=== PATIENT | male | born 1970 | race Hispanic/Latino ===

== ENCOUNTER 2018-09-05 04:34 | Emergency (ER) | payer BC ==
[~2018-09-05] VITALS: Ht 185.4 cm; Wt 136.1 kg
--- OUTSIDE RECORDS SUMMARY | 2018-09-05 04:37 | XMS REPORT | Clinical Summary ---
Author Author [facility] Organization [facility] Address Unknown Phone Unavailable Care Team Providers [facility] Name Role Phone Frank Godoy MD PCP Allergies Comments Active Allergy Reactions Severity Noted Date Erectile issues Hydrochlorothiazide 03/31/2018 Medications End Date Status Medication Sig Dispensed Refills Start Date Active cholecalciferol, vitamin Take 1,000 0 D3, (VITAMIN D3) 1,000 Units by unit capsule mouth daily. 02/03/2019 Active metFORMIN XR Take 1 tablet 90 tablet 3 (GLUCOPHAGE-XR) 500 mg 24 (500 mg 8 hr tablet total) by mouth daily with breakfast. 02/03/2019 Active losartan (COZAAR) 100 MG Take 1 tablet 90 tablet 3 tablet (100 mg 8 total) by mouth daily. 04/01/2019 Active rosuvastatin (CRESTOR) 40 Take 1 tablet 90 tablet 3 MG tablet (40 mg total) 8 by mouth daily. 03/31/2018 Discontinued ciclopirox (PENLAC) 8 % Apply over 6.6 mL 2 solution nail and 7 surrounding skin. Apply daily over previous coat. After seven (7) days, may remove with alcohol and continue cycle. 02/03/2018 Discontinued rosuvastatin (CRESTOR) 20 Take 1 tablet 90 tablet 3 MG tabletIndications: (20 mg total) 7 Mixed hyperlipidemia by mouth daily. 10/01/2017 Discontinued hydroCHLOROthiazide Take 1 tablet 30 tablet 5 (HYDRODIURIL) 25 MG (25 mg total) 7 tablet by mouth daily. 09/17/2017 Discontinued meloxicam (MOBIC) 7.5 mg TAKE 1 TABLET 30 tablet 0 tablet (7.5 MG 7 TOTAL) BY MOUTH DAILY. 02/03/2018 Discontinued losartan (COZAAR) 50 MG Take 1 tablet 30 tablet 11 tablet (50 mg total) 7 by mouth daily. 01/19/2018 Discontinued meloxicam (MOBIC) 15 mg Take 1 tablet 90 tablet 0 tablet (15 mg total) 7 by mouth daily as needed for moderate pain. 03/31/2018 Discontinued fluticasone-salmeterol Inhale 1 puff 14 each 0 (ADVAIR DISKUS) 250-50 2 (two) times 7 mcg/dose DISKUS a day. 02/03/2018 Discontinued rosuvastatin (CRESTOR) 20 TAKE 1 TABLET 90 tablet 3 MG tabletIndications: (20 MG TOTAL) 7 Mixed hyperlipidemia BY MOUTH DAILY. TAKE 1 TABLET BY MOUTH EVERY DAY 02/03/2018 Discontinued hydroCHLOROthiazide TAKE 1 TABLET 30 tablet 5 (HYDRODIURIL) 25 MG (25 MG TOTAL) 7 tablet BY MOUTH DAILY. 03/31/2018 Discontinued meloxicam (MOBIC) 15 mg TAKE 1 TABLET 30 tablet 0 tablet (15 MG TOTAL) 8 BY MOUTH DAILY NEEDED FOR MODERATE PAIN. 04/01/2018 Discontinued rosuvastatin (CRESTOR) 20 Take 1 tablet 90 tablet 3 MG tablet (20 mg total) 8 by mouth daily. 03/30/2018 Discontinued omeprazole (PriLOSEC) 40 Take 1 30 capsule 1 MG capsule capsule (40 8 mg total) by mouth daily for 60 days. 05/29/2018 omeprazole (PriLOSEC) 40 TAKE 1 30 capsule 1 MG capsule CAPSULE (40 8 MG TOTAL) BY MOUTH DAILY FOR 60 DAYS. Active Problems Problem Noted Date Impaired glucose tolerance 01/09/2016 Reactive airway disease 01/09/2016 Nephrolithiasis 06/25/2015 Vitamin D deficiency 09/29/2012 Essential hypertension 02/10/2012 Malaise and fatigue 02/10/2012 Headache 03/24/2011 Seasonal allergic rhinitis due to pollen 01/19/2011 Mixed hyperlipidemia 01/19/2011 Encounters Care Team Description Date Type Specialty Frank Godoy MD 04/01/2018 Orders Only Internal Medicine Frank Godoy MD Essential hypertension (Primary Dx); Impaired glucose tolerance; Mixed hyperlipidemia; Need for Tdap vaccination 03/31/2018 Office Visit Internal Medicine Frank Godoy MD 03/30/2018 Refill Internal Medicine Frank Godoy MD Right upper quadrant abdominal pain 02/03/2018 Hospital Radiology Encounter Frank Godoy MD Right upper quadrant abdominal pain (Primary Dx); Impaired glucose tolerance; Essential hypertension; Mixed hyperlipidemia; Vitamin D deficiency 02/03/2018 Office Visit Internal Medicine Frank Godoy MD 01/19/2018 Refill Internal Medicine Frank Godoy MD 10/01/2017 Refill Internal Medicine Frank Godoy MD Mixed hyperlipidemia 09/26/2017 Refill Internal Medicine Frank Godoy MD Essential hypertension (Primary Dx); Hyperglycemia; Cough; Need for vaccination 09/17/2017 Office Visit Internal Medicine after 09/04/2017 Immunizations Name Dates Previously Given Next Due INFLUENZA QUAD PF 09/17/2017 Tdap 03/31/2018 Family History Medical History Relation Name Comments Heart attack Father cause of Hyperlipidemia Father Arthritis Mother Hyperlipidemia Mother Heart disease Paternal Grandfather Relation Name Status Comments Brother Alive Father (Age 42) Maternal Grandfather Maternal Grandmother Mother Alive aortic valve stenosis, gastritis Paternal Grandfather Paternal Grandmother Sister Alive Sister Alive Social History Date Tobacco Use Types Packs/Day Years Used Never Smoker Smokeless Tobacco: Never Used Alcohol Use Drinks/Week oz/Week Comments Yes had not been drinking beer, but did have 5 on Wednesday and 5 on Wednesday with events Sex Assigned at Date Recorded Not on file Industry Job Start Date Occupation Not on file Not on file Not on file Travel End Travel History Travel Start No recent travel history available. Last Filed Vital Signs Time Taken Vital Sign Reading 03/31/2018 8:15 AM CDT Blood Pressure 128/89 03/31/2018 8:15 AM CDT Pulse 85 02/03/2018 9:36 AM CDT Temperature 36.8 C (98.2 F) 09/17/2017 9:42 AM [employer]ATOR Respiratory Rate 20 - Oxygen Saturation - - Inhaled Oxygen - Concentration 03/31/2018 8:15 AM CDT Weight 135 kg (297 lb) 03/31/2018 8:15 AM CDT Height 188 cm (6' 2") 03/31/2018 8:15 AM CDT Body Mass Index 38.13 Plan of Treatment Care Team Description Date Type Specialty Frank Godoy MD [address] [facility] [address] [place], [place] [id number] 09/12/2018 Office Visit Internal Medicine Brian Weston MD [address] [facility] [address] [place] [address] 10/20/2018 Office Visit General Surgery Health Maintenance Due Date Last Done Comments MMR VACCINES (1 of - 1973 Standard series) VARICELLA VACCINES (1 of 1985 2 - 2-dose adolescent series) INFLUENZA VACCINE Discontinued 09/17/2017 HEPATITIS B VACCINES Aged Out No longer eligible based on patient's age to complete this topic IPV VACCINES Aged Out No longer eligible based on patient's age to complete this topic MENINGOCOCCAL VACCINE Aged Out No longer eligible based on patient's age to complete this topic Procedures Comments Procedure Name Priority Date/Time Associated Diagnosis HEMOGLOBIN A1C Routine 03/31/2018 Impaired glucose 8:56 AM CDT tolerance LIPID PANEL Routine 03/31/2018 Mixed hyperlipidemia 8:56 AM CDT COMPREHENSIVE METABOLIC Routine 03/31/2018 Essential hypertension PANEL 8:56 AM CDT US ABDOMEN COMPLETE Routine 02/03/2018 Right upper quadrant 12:00 PM CDT abdominal pain POC GLYCOSYLATED Routine 02/03/2018 Impaired glucose HEMOGLOBIN (HGB A1C) 10:21 AM CDT tolerance LIPID PANEL Routine 02/03/2018 Mixed hyperlipidemia 10:15 AM CDT URINALYSIS, COMPLETE, Routine 02/03/2018 Right upper quadrant WITH REFLEX TO CULTURE 10:15 AM CDT abdominal pain Essential hypertension AMYLASE LEVEL Routine 02/03/2018 Right upper quadrant 10:15 AM CDT abdominal pain LIPASE LEVEL Routine 02/03/2018 Right upper quadrant 10:15 AM CDT abdominal pain CBC WITH PLATELET AND Routine 02/03/2018 Right upper quadrant DIFFERENTIAL 10:15 AM CDT abdominal pain Essential hypertension COMPREHENSIVE METABOLIC Routine 02/03/2018 Impaired glucose PANEL 10:15 AM CDT tolerance Essential hypertension HEMOGLOBIN A1C Routine 09/17/2017 Hyperglycemia 10:42 AM 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 Hemoglobin A1C 5.7 (H) <5.7 % of total Hgb [facility] Comment: [place] For someone without known diabetes, a hemoglobin A1c value between 5.7% and 6.4% is consistent with prediabetes and should be confirmed with a follow-up test. For someone with known diabetes, a value <7% indicates that their diabetes is well controlled. A1c targets should be individualized based on duration of diabetes, age, comorbid conditions, and other considerations. This assay result is consistent with an increased risk of diabetes. Currently, no consensus exists regarding use of hemoglobin A1c for diagnosis of diabetes for children. Specimen Blood Narrative Performed At FASTING:YES [facility] FASTING: YES Resulting Agency Comment Performing Organization Information: Site ID: [id number] Name: [facility] Address: [address] [place] [phone] Director: Deandra Nails Performing Organization Address City/State/Zipcode Phone Number [facility] [place] [phone] * Lipid panel (03/31/2018 8:56 AM CDT) Only the most recent of 3 results within the time period is included. Cholesterol, total 186 <200 mg/dL [facility] [place] HDL cholesterol 42 >40 mg/dL [facility] [place] Triglycerides 116 <150 mg/dL [facility] [place] LDL cholesterol 122 (H) mg/dL (calc) [facility] calculated Comment: [place] Reference range: <100 Desirable range <100 mg/dL for primary prevention; <70 mg/dL for patients with CHD or diabetic patients with > or=2 CHD risk factors. LDL-C is now calculated using the Mehdi calculation, which is a validated novel method providing better accuracy than the Friedewald equation in the estimation of LDL-C. Nawaf GIL et al. MINA. 2013;310(19): 6368-2789 (http://education.Xecced.SOL ELIXIRS/faq/NHQ681) Cholesterol/HDL ratio 4.4 <5.0 (calc) [facility] [place] Non-HDL cholesterol 144 (H) <130 mg/dL (calc) [facility] Comment: [place] For patients with diabetes plus 1 major ASCVD risk factor, treating to a non-HDL-C goal of <100 mg/dL (LDL-C of <70 mg/dL) is considered a therapeutic option. Specimen Blood Narrative Performed At FASTING:YES [facility] FASTING: YES Resulting Agency Comment Performing Organization Information: Site ID: [id number] Name: [facility] Address: [address] [place] [phone] Director: Deandra Nails Performing Organization Address City/State/Zipcode Phone Number [place] [address] * Comprehensive metabolic panel (03/31/2018 8:56 AM CDT) Only the most recent of 3 results within the time period is included. Glucose 122 (H) 65 - 99 mg/dL [facility] Comment: [place] Fasting reference interval For someone without known diabetes, a glucose value between 100 and 125 mg/dL is consistent with prediabetes and should be confirmed with a follow-up test. BUN, whole blood 17 7 - 25 mg/dL [facility] Creatinine 0.96 0.60 - 1.35 mg/dL [facility] [place] EGFR Non-Afr. Iranian 95 > OR=60 mL/min/1.73m2 [facility] EGFR 110 > OR=60 mL/min/1.73m2 [facility] BUN/creatinine ratio NOT APPLICABLE 6 - 22 (calc) [facility] Sodium 140 135 - 146 mmol/L [facility] Potassium 4.0 3.5 - 5.3 mmol/L [facility] Chloride 107 98 - 110 mmol/L [facility] CO2 24 20 - 31 mmol/L [facility] Calcium 9.3 8.6 - 10.3 mg/dL [facility] Protein 7.2 6.1 - 8.1 g/dL [facility] Albumin, S 4.3 3.6 - 5.1 g/dL [facility] Globulin, total 2.9 1.9 - 3.7 g/dL (calc) [facility] Albumin/globulin ratio 1.5 1.0 - 2.5 (calc) [facility] Total bilirubin 0.9 0.2 - 1.2 mg/dL [facility] Alkaline phosphatase 70 40 - 115 U/L [facility] AST 28 10 - 40 U/L [facility] ALT 57 (H) 9 - 46 U/L [facility] Specimen Blood Narrative Performed At FASTING:YES [facility] FASTING: YES Resulting Agency Comment Performing Organization Information: Site ID: [id number] Name: [facility] Address: [address] [place] [phone] Director: Deandra Nails Performing Organization Address City/State/Zipcode Phone Number [facility] [place] [phone] * US Abdomen Complete (02/03/2018 12:00 PM CDT) Narrative Performed At EXAM: US ABDOMEN COMPLETE [facility] CLINICAL DATA:R10.11 Right upper quadrant pain, ABDOMINAL PAIN COMPARISON: NONE. IMPRESSION: LIVER:The liver demonstrates diffusely increased echogenicity consistent with fatty infiltration. No masses. GALLBLADDER:The gallbladder is without evidence of calculi. The gallbladder wall is not thickened and there is no pericholecystic fluid. CBD:Obscured by bowel gas. MPV:Doppler evaluation of the portal vein demonstrates normal hepatopetal flow. 12 mm in diameter. PANCREAS:Obscured by bowel gas. SPLEEN:The spleen is homogeneous and not enlarged measuring 12.3 cm in length. KIDNEYS:Survey of kidneys demonstrates no hydronephrosis.The right kidney measures 11.8 cm in length and the left kidney [id number] cm in length. AORTA:The visualized upper abdominal aorta demonstrates no evidence of ectasia or aneurysm. IVC:The visualized portions of the inferior vena cava are unremarkable. ASCITES: No ascites or abnormal fluid collections are seen. PLEURAL EFFUSION:There are no pleural effusions. [facility]-[id number] Procedure Note Interface, Radiology Results Incoming - 02/03/2018 1:45 PM CDT EXAM: US ABDOMEN COMPLETE CLINICAL DATA: R10.11 Right upper quadrant pain, ABDOMINAL PAIN COMPARISON: NONE. IMPRESSION: LIVER: The liver demonstrates diffusely increased echogenicity consistent with fatty infiltration. No masses. GALLBLADDER: The gallbladder is without evidence of calculi. The gallbladder wall is not thickened and there is no pericholecystic fluid. CBD: Obscured by bowel gas. MPV: Doppler evaluation of the portal vein demonstrates normal hepatopetal flow. 12 mm in diameter. PANCREAS: Obscured by bowel gas. SPLEEN: The spleen is homogeneous and not enlarged measuring 12.3 cm in length. KIDNEYS: Survey of kidneys demonstrates no hydronephrosis. The right kidney measures 11.8 cm in length and the left kidney measures 12 cm in length. AORTA: The visualized upper abdominal aorta demonstrates no evidence of ectasia or aneurysm. IVC: The visualized portions of the inferior vena cava are unremarkable. ASCITES: No ascites or abnormal fluid collections are seen. PLEURAL EFFUSION: There are no pleural effusions. [facility]-[id number] Performing Organization Address City/State/Zipcode Phone Number [facility] [address] [place] [address] * POC glycosylated hemoglobin (Hb A1C) (02/03/2018 10:21 AM CDT) POC Hemoglobin A1C 6.1 % Specimen Blood * URINALYSIS, COMPLETE, WITH REFLEX TO CULTURE (02/03/2018 10:15 AM CDT) Color, UA YELLOW YELLOW [facility] [place] Appearance CLEAR CLEAR [facility] [place] Specific gravity, urine 1.017 1.001 - 1.035 [facility] [place] pH, urine 7.0 5.0 - 8.0 [facility] [place] Glucose, urine NEGATIVE NEGATIVE [facility] [place] Bilirubin, UA NEGATIVE NEGATIVE [facility] [place] Ketones, UA NEGATIVE NEGATIVE [facility] [place] Occult blood, urine NEGATIVE NEGATIVE [facility] [place] Protein, UA NEGATIVE NEGATIVE [facility] [place] Nitrite, UA NEGATIVE NEGATIVE [facility] [place] Leukocyte esterase, UA NEGATIVE NEGATIVE [facility] [place] WBC, UA NONE SEEN < OR=5 /HPF [facility] [place] RBC, UA NONE SEEN < OR=2 /HPF [facility] [place] Squamous epithelial NONE SEEN < OR=5 /HPF [facility] cells, [facility] [place] Bacteria, UA NONE SEEN NONE SEEN /HPF [facility] [place] Hyaline casts, UA NONE SEEN NONE SEEN /LPF [facility] [place] Reflex NO CULTURE INDICATED [facility] [place] Narrative Performed At FASTING:YES [facility] FASTING: YES Resulting Agency Comment Performing Organization Information: Site ID: [id number] Name: [facility] Address: [address] [place] [phone] Director: Deandra Nails Performing Organization Address City/State/[facility] Ranch[facility]ode Phone Number [facility] [place] [address] [place] [phone] * CBC with platelet and differential (02/03/2018 10:15 AM CDT) WBC 6.9 3.8 - 10.8 Thousand/uL [facility] [place] RBC 5.44 4.20 - 5.80 Million/uL [facility] [place] HGB 16.6 13.2 - 17.1 g/dL [facility] [place] HCT 47.8 38.5 - 50.0 % [facility] [place] MCV 87.9 80.0 - 100.0 fL [facility] [place] MCH 30.5 27.0 - 33.0 pg [facility] [place] MCHC 34.7 32.0 - 36.0 g/dL [facility] [place] RDW 12.6 11.0 - 15.0 % [facility] [place] Platelet count 247 140 - 400 Thousand/uL [facility] [place] MPV 10.2 7.5 - 12.5 fL [facility] [place] Neutrophils, absolute 3,926 1,500 - 7,800 cells/uL [facility] [place] Lymphocytes, absolute 2,236 850 - 3,900 cells/uL [facility] [place] Monocytes, absolute 559 200 - 950 cells/uL [facility] [place] Eosinophils, absolute 97 15 - 500 cells/uL [facility] [place] Basophils, absolute 83 0 - 200 cells/uL [facility] [place] Neutrophils 56.9 % [facility] [place] Lymphocytes 32.4 % [facility] [place] Monocytes 8.1 % [facility] [place] Eosinophils 1.4 % [facility] [place] Basophils + RC 1.2 % [facility] [place] Specimen Blood Narrative Performed At FASTING:YES [facility] FASTING: YES Resulting Agency Comment Performing Organization Information: Site ID: [id number] Name: [facility] Address: [address] [place] [phone] Director: Deandra Nails Performing Organization Address [facility]/Zipcode Phone Number [employer] [place] [address] [place] [phone] * Lipase level (02/03/2018 10:15 AM CDT) Lipase 19 7 - 60 U/L [facility] [place] Specimen Blood Narrative Performed At FASTING:YES [facility] FASTING: YES Resulting Agency Comment Performing Organization Information: Site ID: [id number] Name: [facility] Address: [address] [place] [phone] Director: Deandra Nails Performing Organization Address [facility] Ranch[facility]ode Phone Number [facility] [place] [address] [place] [phone] * Amylase level (02/03/2018 10:15 AM CDT) Amylase 48 21 - 101 U/L [facility] [place] Specimen Blood Narrative Performed At FASTING:YES [facility] FASTING: YES Resulting Agency Comment Performing Organization Information: Site ID: [facility] Name: [facility] Address: [address] [place] [phone] Director: Deandra Nails Performing Organization Address [facility] Ranchocout Phone Number [facility] [place] [address] [place] [phone] after 09/04/2017 Insurance Payer Benefit Subscriber ID Type Phone Address Plan / Group BCBS BCBS xxxxxxxxxxxx PPO CHOICE PPO/[employer] PPO BCBS BCBS xxxxxxxxxxxx PPO CHOICE PPO/[employer] PPO Advance Directives Patient has advance care planning documents on file. For more information, jagruti soni contact: Alexandre Chakraborty [address] [place] [address]
[2018-09-05] MEDS ORDERED: KETOROLAC TROMETHAMINE 30 MG/ML VIAL IM ONE (05:30)
[2018-09-05] MEDS ORDERED: ONDANSETRON HCL 4 MG ORAL DISINTEGRATING TAB PO ONE (05:45)
--- NOTE | 2018-09-05 06:20 | Diagnostic Imaging Report ---
EXAM: CT Abdomen and Pelvis WITHOUT contrast INDICATION: Testicular pain and left flank pain. ^[id number] ^[id number] COMPARISON: None. TECHNIQUE: Abdomen and pelvis were scanned utilizing a multidetector helical scanner from the lung base to the pubic symphysis without administration of IV contrast. Coronal and sagittal reformations were obtained. Routine protocol was performed. IV CONTRAST: None ORAL CONTRAST: Water COMPLICATIONS: None RADIATION DOSE: Total DLP: 1015.5 mGy*cm Estimated effective dose: (DLP x 0.015 x size factor) mSv CTDIvol has been reviewed. It is below the limits set by the Radiation Protocol Committee (RPC). Dose modulation, iterative reconstruction, and/or weight based adjustment of the mA/kV was utilized to reduce the radiation dose to as low as reasonably achievable. FINDINGS: Absence of intravenous contrast decreases sensitivity for detection of focal lesions and vascular pathology. LINES and TUBES: None. LOWER THORAX: Unremarkable HEPATOBILIARY: Severe hypoattenuation of the liver measuring approximately -5 HU. No focal hepatic lesions. No biliary ductal dilation. GALLBLADDER: Gallstones. No wall thickening. SPLEEN: No splenomegaly. PANCREAS: No focal masses or ductal dilatation. ADRENALS: No adrenal nodules KIDNEYS/URETERS: Mild left hydroureteronephrosis with associated stranding secondary to a 4 mm stone at the distal left ureter just proximal to the ureterovesicular junction. No right hydronephrosis. No cystic or solid mass lesions. No stones. GI TRACT: No abnormal distention, wall thickening, or evidence of bowel obstruction. Appendix is normal. PELVIC ORGANS/BLADDER: Unremarkable. LYMPH NODES: No lymphadenopathy. VESSELS: Unremarkable. PERITONEUM / RETROPERITONEUM: No free air or fluid. BONES: There are degenerative changes in the lumbar spine. SOFT TISSUES: Unremarkable. IMPRESSION: Distal left ureteral 4 mm stone results in mild left hydroureteronephrosis. Severe hepatic steatosis. Signed by: DR. Michael Holloway MD on 09/05/2018 6:16 AM
[2018-09-05] MEDS ORDERED: KETOROLAC TROME10 MG PO (06:36)
[2018-09-05] MEDS ORDERED: ZOFRAN8 MG PEG (06:36)
[2018-09-05] MEDS ORDERED: TYLENOL WITH C1 EACH PO (06:36)
[2018-09-05] MEDS ORDERED: FLOMAX0.4 MG PO (06:36)
[2018-09-05 06:46] VITALS: BP 165/85
== END 2018-09-05 07:00 | disposition home or self-care (01) ==
LOC: FSED 04:34
DX: M54.5 Low back pain (principal); R10.9 Unspecified abdominal pain; R30.0 Dysuria; N20.1 Calculus of ureter; N13.30 Unspecified hydronephrosis; I10 Essential (primary) hypertension; E78.5 Hyperlipidemia, unspecified; F17.210 Nicotine dependence, cigarettes, uncomplicated
CPT/HCPCS: 74176; 81003; 99283; J1885; Q0162